=== PATIENT | female | born 1960 | race Caucasian/White ===

== ENCOUNTER 2019-02-10 11:15 | Day surgery (SDC) | payer MEDICAID ==
[~2019-02-10] VITALS: Ht 170.2 cm; Wt 58.5 kg
[2019-02-10] VITALS (10 sets, daily range): BP systolic 97–130; BP diastolic 44–79
[2019-02-10] MEDS ORDERED: normal saline 1000ml 1,000 ML IV SCH ×2 (11:40→13:03)
[2019-02-10] MEDS ORDERED: CYCL-1 PO (12:30)
[2019-02-10] MEDS ORDERED: MORP15TA PO (12:30)
[2019-02-10] MEDS ORDERED: BACL10TA PO (12:30)
[2019-02-10 12:44] LABS: BASOPHILS % (AUTO) 0.4 % (0-1); EOSINOPHILS # (AUTO) 0.1 X10'3 (0-0.9); EOSINOPHILS % (AUTO) 2.1 % (0-6); HEMATOCRIT 31.9 % (35.0-45.0); HEMOGLOBIN 10.4 g/dl (12.0-16.0); LYMPHOCYTES # (AUTO) 1.4 X10'3 (1.1-4.8); MEAN CORPUSCULAR HEMOGLOBIN 27.6 PG (27.0-31.0); MEAN CORPUSCULAR HGB CONC 32.7 g/dL (33.0-36.5); MEAN CORPUSCULAR VOLUME 84.3 FL (78-98); MEAN PLATELET VOLUME 7.1 FL (7.4-10.4); MONOCYTES # (AUTO) 0.6 X10'3 (0-0.9); MONOCYTES % (AUTO) 11.1 % (2-12); NEUTROPHILS # (AUTO) 3.5 X10'3 (1.8-7.7); NEUTROPHILS % (AUTO) 61.4 % (42-75); PLATELET COUNT 505 X10'3 (140-440); RED BLOOD COUNT 3.79 X10'6 (4.20-5.60); RED CELL DISTRIBUTION WIDTH 12.9 % (11.5-14.5); WHITE BLOOD COUNT 5.8 X10'3 (4.5-11.0)
[2019-02-10 12:47] LABS: ALBUMIN 2.8 G/DL (3.4-5.0); ANION GAP 5 (8-16); BLOOD UREA NITROGEN 8 MG/DL (7-18); BUN/CREATININE RATIO 9.9 (6.6-38.0); CALCIUM 9.3 MG/DL (8.5-10.1); CHLORIDE 103 MMOL/L (99-107); CREATININE 0.81 MG/DL (0.40-0.90); GLUCOSE 93 MG/DL (70-104); POTASSIUM 3.8 MMOL/L (3.5-5.1); SODIUM 138 MMOL/L (135-145); TOTAL CARBON DIOXIDE 29.7 MMOL/L (24-32); eGFR 73 ML/MIN
[2019-02-10 13:02] LABS: INR 1.1 INR; PROTHROMBIN TIME 10.7 SECONDS (9.0-12.0)
[2019-02-10] MEDS ORDERED: fentaNYL/PF 50MCG/1 ML 2ML syringe IV PRN (13:05)
[2019-02-10] MEDS ORDERED: LIDOcaine 1%/PF 5ML 10 MG/ML VIAL SQ ONE (13:05)
[2019-02-10] MEDS ORDERED: midazolam 2 mg/2 ml injection IV PRN (13:05)
[2019-02-10] MEDS ORDERED: LIDOcaine 1%/PF 5ML 10 MG/ML VIAL ONE (13:13)
[2019-02-10] MEDS ORDERED: midazolam 2 mg/2 ml injection ONE (13:14)
[2019-02-10] MEDS ORDERED: fentaNYL/PF 50MCG/1 ML 2ML syringe ONE (13:14)
== END 2019-02-10 14:35 | disposition home or self-care (01) ==
LOC: SSTAY O 11:15
PROVIDERS: ATTEND Radiology Diagnostic Radiology
DX: C40.22 Malignant neoplasm of long bones of left lower limb (principal); Z86.19 Personal history of other infectious and parasitic diseases; Z91.030 Bee allergy status
CPT/HCPCS: 20206; 36415; 77012; 80048; 85025; 85610; J2001; J2250; J3010; J7030; 99152; 99153